=== PATIENT | male | born 1950 | race Hispanic/Latino ===

== ENCOUNTER → 2020-05-04 | Outpatient (CLI) | payer MEDICARE ==
[2020-05-04 07:19] LABS: CREATININE, SERUM 5.71 mg/dL (0.72-1.25); POTASSIUM 4.2 mmol/L (3.5-5.1)
== END ==
LOC: LAB 06:47
PROVIDERS: ATTEND Internal Medicine Gastroenterology
DX: Z12.11 Encounter for screening for malignant neoplasm of colon (principal)
CPT/HCPCS: 36415; 82565; 84132; 84520